=== PATIENT | male | born 1955 | race Caucasian/White ===

== ENCOUNTER 2025-04-17 20:02 | Emergency (ER) | payer MEDICARE, SELFPAY ==
[2025-04-17 20:03] VITALS: BP 127/102; PULSE 66; RESP 18; TEMP 36.1; O2SAT 98
[2025-04-17 20:27] VITALS: BMI 32.8
--- NOTE | 2025-04-17 21:06 | RAD_ITS ---
PROCEDURE: RIGHT KNEE 3 VIEWS 04/17/2025 REASON FOR EXAM: PAIN, LATERAL LEG TECHNIQUE: Procedure Code: RADPAT Modality: DX Procedure: KNEE 3 VIEWS Laterality: Right COMPARISON: None. FINDINGS: Acute nondisplaced oblique fracture of the fibular head/neck. No additional acute fracture or dislocation is seen. Preserved joint spaces. Trace suprapatellar joint fluid. No marked soft tissue swelling. RAD/Knee 3 Views IMPRESSION: Acute nondisplaced fracture of the fibular head/neck. Reading Location: [facility]
--- NOTE | 2025-04-17 22:28 | RAD_ITS ---
PROCEDURE: RIGHT ANKLE MIN 3 VIEWS 04/17/2025 REASON FOR EXAM: FIBULAR HEAD FRACTURE TECHNIQUE: Procedure Code: RADANK Modality: DX Procedure: ANKLE MIN 3 VIEWS Laterality: Right COMPARISON: None. FINDINGS: No acute fracture or dislocation. Alignment is anatomic. Preserved joint spaces. No aggressive osseous lesion. No marked soft tissue swelling or radiopaque foreign body. RAD/Ankle min 3 Views IMPRESSION: No acute fracture or dislocation of the right ankle. Reading Location: [facility]
--- NOTE | 2025-04-17 22:32 | EDS_ITS ---
HPI History of Present Illness Chief Complaint: Lower Extremity Injury Narrative Narrative: Chief complaint and HPI: 70-year-old male with past medical history of HTN, HLD presents for evaluation of lateral upper right calf pain. Patient states he was outside playing around with his dog when his dog ran into his right lower extremity below the knee. States he has had pain in this area. Pain is worse with ambulation. He denies any numbness or tingling. Denies any ankle pain. Review of systems: See HPI Medications: As listed on the chart Allergies: As listed on the chart PFSH: Per chart Vital signs: As listed on the chart. Reviewed. Physical exam: Gen: A&O x3, NAD Head: Normocephalic, atraumatic Eyes: No sclera icterus, conjunctiva clear ENT: Moist mucous membranes CV: Regular rate Resp: Nonlabored respirations Musc: Full ROM of the right lower extremity including the hip/knee/ankle/foot, no knee instability with full range of flexion and extension, patient has tenderness to palpation over the right fibular head without external signs of trauma, compartments soft, DP/PT pulses +2 bilaterally, good capillary refill, sensation intact, Achilles tendon intact Skin: Warm, dry Neuro: Alert, oriented, grossly intact Psych: Cooperative, appropriate mood and affect [facility] Medical History (Updated 04/17/25 @ 23:[address] Jagdeep Roe, ) High cholesterol HTN (hypertension) Home Medications ?Medication ?Instructions ?Recorded ?Last Taken ?Type hydrocodone-acetaminophen 5-325mg 1 tab PO Q6H PRN PRN Pain 3 days 04/17/25 Unknown Rx 5mg-325mg #12 TABLETS lisinopril 20 1 tab PO DAILY 04/17/25 Unkn own History mg-hydrochlorothiazide 12.5 mg tablet rosuvastatin 10 mg tablet 10 mg PO QHS 04/17/25 Unknow n History Allergy/AdvReac Type Severity Reaction Status Date / Time [id number] Reductase Allergy Other Verified 04/17/25 20:03 Inhibitor Social History Smoking Status: Never smoker EXAM Physical Exam Const Vital Signs: 04/17/25 20:03 Temperature 97 F L Temperature Source Temporal Pulse Rate 66 Respiratory Rate 18 Blood Pressure 127/102 H Blood Pressure Mean 110 Pulse Ox 98 Oxygen Delivery Method Room Air MDM MDM MDM Narrative Medical decision making narrative: 70-year-old male with past medical history of HTN, HLD presents for evaluation of lateral upper right calf pain. Patient states he was outside playing around with his dog when his dog ran into his right lower extremity below the knee. States he has had pain in this area. Pain is worse with ambulation. He denies any numbness or tingling. Denies any ankle pain. Physical exam is unremarkable except for tenderness to palpation of the right fibular head. Differential diagnosis includes but is not limited to fracture versus contusion. Patient offered pain medicine but declined. X-ray of the knee obtained. X-ray of the knee was personally viewed interpreted by me, ED physician. Patient has a nondisplaced fracture of the fibular head. No dislocation. No significant soft tissue swelling. Radiology in agreement. Dr. Arriaza with orthopedic surgery was consulted and patient was discussed. He reviewed the x-ray. Despite patient having no pain in the ankle, recommended x-ray of the ankle to rule out for other fracture. If no fracture of the ankle exists, patient can be nonweightbearing with crutches. No splint needed. If ankle has fracture, recommend posterior splint. Follow-up in the office. Patient was updated of the results and the plan. He confirmed understanding. Patient now asking for pain medicine. [place] ordered. X-ray of the ankle ordered. X-ray of the ankle was personally viewed interpreted by tn, ED physician. No fracture or dislocation. Patient stable to discharge home without splint. Nonweightbearing to the right lower extremity. Crutches. Patient confirmed understanding of the plan. Follow-up with orthopedic surgery. Prescription for [place] as needed for severe pain. Return precautions explained. He confirmed understand the plan. Impression: 1. Closed right fibular head fracture Radiography Diagnostic Testing: Clinical Impression(s) from Imaging Studies Knee X-Ray 04/17/25 21:06 IMPRESSION: Acute nondisplaced fracture of the fibular head/neck. Reading Location: [facility] Discharge Plan Triage Chief Complaint: Lower Extremity Injury ED Provider: Jagdeep Roe Dx/Rx/DC Orders Clinical Impression: Closed fracture fibula, head Instructions: ED Leg Fracture Prescriptions: New hydrocodone-acetaminophen 5-325 mg tablet 1 tab PO Q6H PRN PRN (Reason: Pain) 3 Days Qty: 12 0RF No Action lisinopril-hydrochlorothiazide 20-12.5 mg tablet 1 tab PO DAILY rosuvastatin 10 mg tablet 10 mg PO QHS Primary Care Provider: Franc Cote Referrals: Franc Cote MD [Primary Care Provider, Family Practice] - 3-5 Days Alvin Arriaza MD [Med Staff - Active Staff, Orthopedics] - 3-5 Days Activity Restrictions/Additional Instructions: You are nonweightbearing to the right lower extremity. Use crutches for am bulation. Okay for Tylenol and ibuprofen. Narcotics for severe pain. Follow- up with orthopedic physician. Call to make an appointment as soon as possible. Return back to the ED if symptoms change or worsen. Print Language: Slovak Disposition Disposition: Home, Self Care
[2025-04-17] MEDS: HYDROcodone Bitartrate/Apap 5/325 Tablet PO (22:41)
[2025-04-17 23:58] VITALS: BP 126/92; PULSE 70; RESP 18; TEMP 36.4; O2SAT 99
== END 2025-04-17 23:59 | disposition home or self-care (01) ==
PROVIDERS: Emergency Provider Surgery; PCP Family Medicine; Visit Provider Surgery
DX: S82.434A Nondisplaced oblique fracture of shaft of right fibula, initial encounter for closed fracture (principal); E78.00 Pure hypercholesterolemia, unspecified; I10 Essential (primary) hypertension; W54.1XXA Struck by dog, initial encounter; Y93.K9 Activity, other involving animal care; Z79.899 Other long term (current) drug therapy
CPT/HCPCS: 73562; 73610; 99283